=== PATIENT | female | born 1970 | race Two or more races ===

== ENCOUNTER → 2023-11-13 06:35 | Day surgery (SDC) | payer OTHER, SELFPAY | LOC: GI 06:35 | PROVIDERS: ATTENDING PHYSICIAN Internal Medicine Gastroenterology | DX: R93.3 Abnormal findings on diagnostic imaging of other parts of digestive tract (principal); R19.4 Change in bowel habit; K64.8 Other hemorrhoids | CPT/HCPCS: 45380; 88305 ==

== ENCOUNTER 2024-11-04 20:34 | Emergency (ER) | payer OTHER, SELFPAY ==
[2024-11-04 20:43] VITALS: BP 133/73
[2024-11-04 23:03] VITALS: BMI 24.5
--- NOTE | 2024-11-04 23:13 | ED.GENMED ---
History of Present Illness
General
Chief Complaint: Musculo-Skeletal Complaint
Source: patient
Exam Limitations: none
Time Seen by Provider: 11/04/24 23:12
Nursing documentation reviewed up to this point in time: agreed with
History of Present Illness
History of Present Illness:
This is a 54-year-old female with a past medical history of hypertension, constipation, who presents to the emergency department today with concerns of hip pain rating down to the right knee for the past 3 days. Patient reports that she first
noticed the pain when she was walking in the mall with her daughter. Patient reports that when she got home, she feels like the pain got worse. Patient also reports that she has been lifting heavy suitcases this weekend but she denies any lower
back pain. She states that the pain is worse in the left inguinal region and intensifies and radiates into the knee when she abducts or externally rotates her hip. She currently is able to ambulate with the assistance of a walker. She has no
abdominal pain associated with this, no burning with urination, no dysuria, no nausea or vomiting, no genital paresthesias, fevers or chills.
Past History
Past History
ED Past Medical History: None
ED Past Surgical History: None
Review of Systems
Review of Systems
All Other Systems: ROS reviewed and negative except as documented in HPI and ROS
Phy Exam
Physical Exam
Physical Exam:
General: Patient is well appearing and in no acute distress; non-toxic
Skin: Warm and dry, no rashes or lesions
Head: Normocephalic, atraumatic
Eyes: Sclera non-icteric. EOMs intact.
Cardiac: Regular rate
Peripheral Vascular: Bilateral lower extremities symmetric, 2+ distal pulses
Pulm: Normal respiratory effort
Abdomen: No abdominal tenderness to palpation, no palpable abdominal mass
Musculoskeletal: Hip and knee pain with internal/external rotation of the left hip, pain with hip abduction, no pain with passive flexion extension of the left knee. Antalgic gait.
Neuro: CN II-XII intact, no focal neurologic deficits. Sensation intact.
Psychiatric: Appropriate mood and affect.
Course
Orders/Labs/Results
Orders:
Orders
11/04/24 20:47
CR Hip - LT w/wo Pel 2-3 Vw* Urgent
Comment:
Reason For Exam: left hip pain
Include a pelvis x-ray?: Yes
Lumbar Spine Complete, 4 View [CR Lumbar Spine Comp Min 4 Vw*] Urgent
Comment:
Reason For Exam: low back pain into the hip
11/04/24 23:25
Cyclobenzaprine HCl [Flexeril] 10 mg PO NOW STA
Ketorolac [Toradol] 30 mg IM NOW STA
Lidocaine [Lidocaine 4% Patch] 1 patch TOPICAL DAILY ONE
Apply Lidocaine patch(s) to:: left anterior hip
11/04/24 23:28
Vital Signs- Treatment ONCE
Frequency: Once
Comment: temp
Vital Signs
Initial and Last Documented VS:
Initial Vital Signs
Temp Pulse BP Pulse Ox
99.9 F 94 133/73 95
11/04/24 20:43 11/04/24 20:43 11/04/24 20:43 11/04/24 20:43
Last Documented Vital Signs
Temp Pulse Resp BP Pulse Ox
97.9 F 71 16 115/65 98
11/04/24 23:56 11/04/24 23:56 11/04/24 23:56 11/04/24 23:56 11/04/24 23:56
MDM/Problems Addressed
Differential Diagnosis Includes:
osteoarthritis, bursitis, groin strain/hip abductor strain,
MDM/Problems Addressed:
54-year-old female presents emergency department today with concerns of left hip pain rating into the left knee. She has been using a walker to support her ambulation. She not have any falls however she did states she was walking in the mall and
lifting heavy suitcases over the weekend. She denies any abdominal symptoms, urinary symptoms, neurologic symptoms, see HPI. On exam she is well-appearing in no acute distress her lower extremities are symmetric, her distal pulses are strong,
sensation is intact, she does have pain with hip abduction and external rotation. X-rays of the hip and lumbar spine are negative for any acute fracture or dislocation. Suspect hip strain. Patient improved with lidocaine patch, cyclobenzaprine,
and Toradol.
I was called back in the patient's room to address a bump patient has had on her eye. Patient states that this started a few days ago and started as larger and red and she has used warm compresses and it has since decreased in size. Patient states
that she is only use a warm compress once or twice a day. Patient repeats that is mildly painful but she has no pain on the surface of her eye, and has had no drainage in her eye. In physical exam, she has a spongy palpable mass in the left upper
eyelid consistent with hordeolum versus chalazion. Discussed eye hygiene with patient. No concern for preseptal cellulitis. Discussed follow-up with ophthalmology. Patient stable for discharge.
Chronic conditions affecting care:
Hypertension
*Pulse Oximetry
Patient hypoxic: no
*Critical Care Note
Total Time (30-74mins, 75-104mins- exclusive of procedures): Not Applicable
Data Reviewed
Review of Other/Old Records Reveals: Records (Reviewed discharge summary from 04/02/2023 patient seen for sepsis secondary to terminal ileitis) and Discharge Summary
Source: patient and records
ED Attending Note
-
Portions of this chart may have been created with voice recognition software.� Occasional wrong word or��sound alike� substitutions may have occurred due to the inherent limitations of voice recognition software.
Discharge Plan
Departure
Patient Disposition: Home (Routine Discharge)
Date of Disposition: 11/05/24
Time of Disposition: 00:19
Patient with high blood pressure during this ER visit?: Yes
Condition: Good
Discharge Problem:
Strain of left hip adductor muscle, Hordeolum externum (stye)
Instructions: Stye, Hip pain in adults
Prescriptions:
New
ibuprofen 600 mg tablet
600 mg PO Q6H PRN (Reason: Pain) Qty: 15 0RF
cyclobenzaprine 15 mg capsule,extended release 24hr
15 mg PO DAILY Qty: 10 0RF
No Action
amoxicillin-pot clavulanate 875-125 mg tablet
1 tab PO BID Qty: 6 0RF
Referrals:
Simón Rudd MD [Family Provider] -
Gris Purcell MD [Active] - Call in 1-3 days for appt
Activity Restrictions/Additional Instructions:
You have a stye on your left eye, the mainstay of treatment is warm compress 3-5 times a day for 5 to 10 minutes to allow for drainage of the infection, you can also massage the lid with clean hands after the warm compress. Avoid eye make-up and
contact lens use for the time being. Please call the attached number to schedule an appointment for Dr. Purcell's office as this may require incision and drainage in the future.
Ibuprofen has been sent to your pharmacy. You can take 1 tablet every 6 hours as needed for pain. Please take this with food. Please do not exceed 3200 mg in a day. Please do not take this daily for greater than 3 days as this can lead to
stomach pain and ulcers.
PLEASE RETURN EMERGENCY DEPARTMENT SHOULD YOU DEVELOP FEVERS OR CHILLS, ABDOMINAL PAIN, BURNING WITH URINATION, ACUTE WORSENING OF PAIN, INABILITY AMBULATE, CHEST PAIN, SHORTNESS OF BREATH, LIGHTHEADEDNESS, DIZZINESS, OR ANY OTHER SIGNS OR SYMPTOMS
WORRISOME TO YOU.
Interventions
Interventions:
*Risk Screen - Suicide Last Done: 11/04/24 20:46
*General Assessment Last Done: 11/04/24 20:46
*Neglect/Abuse Screening Last Done: 11/04/24 20:46
*ED- Fall Risk Assessment Last Done: 11/04/24 23:03
*ED COVID-19 Vaccine History Last Done: 11/04/24 20:46
*Nursing Disposition Last Done: 11/05/24 00:38
ED-Musculoskeletal Assessment Last Done: 11/04/24 23:03
Discharge Date and Time
Discharge Date/Time: 11/05/24 00:38
Print Language: LATVIAN
[2024-11-04] MEDS: FLEXERIL 10 MG PO (23:52)
[2024-11-04] MEDS: TORADOL 30 MG IM (23:53)
[2024-11-04 23:56] VITALS: BP 115/65
[2024-11-04] MEDS: LIDOCAINE 4% PATCH 1 PATCH TOPICAL (23:56)
== END 2024-11-05 00:38 | disposition home or self-care (01) ==
LOC: EMR 20:34
PROVIDERS: EMERGENCY PHYSICIAN Student in an Organized Health Care Education/Training Program; FAMILY PHYSICIAN Internal Medicine
DX: S76.012A Strain of muscle, fascia and tendon of left hip, initial encounter (principal); X50.0XXA Overexertion from strenuous movement or load, initial encounter; H00.014 Hordeolum externum left upper eyelid; I10 Essential (primary) hypertension
CPT/HCPCS: 99284; 96372; 72110; 73502